=== PATIENT | male | born 1945 | race Caucasian/White ===

== ENCOUNTER 2020-11-14 15:00 | Emergency (ER) | payer MEDICARE ==
[2020-11-14 15:40] VITALS: BP 122/68; PULSE 59; RESP 18; TEMP 97.8
[2020-11-14] MEDS ORDERED: OXYMETAZOLINE 0.05% NASL SPRAY 1 SPRAY BOTTLE NASAL STA (16:04)
--- NOTE | 2020-11-14 19:08 | ED ---
ENT HPI - General Chief complaint: ENT Stated complaint: Nose Bleed Time Seen by Provider: 11/14/20 19:03 Source: patient, family Mode of arrival: wheelchair Limitations: no limitations - History of Present Illness Initial comments: 75-year-old male presents to the emergency department with a chief complaint of nosebleed. Patient states this occurred about 1:30pm in the afternoon without any any trauma. Patient reports the bleeding is, from the left nostril. No history of epistaxis. States he only takes aspirin but no other anticoagulants. He reports feeling slightly lightheaded earlier today after the bleeding started but denies any dizziness. Denies any chest pain or shortness of breath. - Related Data Previous Rx's Medication Instructions Recorded Amoxicillin/Potassium Clav 1 tab PO Q12HR #20 tab 11/14/20 [Augmentin 875-125 Tablet] Allergies Allergy/AdvReac Type Severity Reaction Status Date / Time No Known Allergies Allergy Verified 11/14/20 15:37 Review of Systems ROS Statement: Those systems with pertinent positive or pertinent negative responses have been documented in the HPI. ROS Other: All systems not noted in ROS Statement are negative. Past Medical History Past Medical History: Myocardial Infarction ([place]) History of Any Multi-Drug Resistant Organisms: None Reported, Unobtainable Past Surgical History: Heart Catheterization With Stent Past Psychological History: No Psychological Hx Reported Past Alcohol Use History: None Reported Past Drug Use History: None Reported General Exam Limitations: no limitations General appearance: alert, in no apparent distress Head exam: Present: atraumatic, normocephalic, normal inspection Eye exam: Present: normal appearance, PERRL, EOMI Pupils: Present: normal accommodation ENT exam: Present: normal exam, mucous membranes moist, TM's normal bilaterally, normal external ear exam. Absent: normal oropharynx (Left-sided epistaxis. Unable to visualize the source of the bleed. Residual blood noted in the posterior pharynx. Patient is spitting out blood clots.) Neck exam: Present: normal inspection, full ROM. Absent: tenderness Respiratory exam: Present: normal lung sounds bilaterally. Absent: respiratory distress Cardiovascular Exam: Present: regular rate, normal rhythm, normal heart sounds Extremities exam: Present: normal inspection, full ROM. Absent: tenderness Back exam: Present: normal inspection, full ROM. Absent: tenderness, CVA tenderness (R), CVA tenderness (L) Neurological exam: Present: alert, oriented X3, normal gait Psychiatric exam: Present: normal affect, normal mood Skin exam: Present: warm, dry, intact, normal color Course Vital Signs 11/14/20 15:37 Temperature 97.8 F Pulse Rate 59 L Respiratory 18 Rate Blood Pressure 122/68 O2 Sat by Pulse 97 Oximetry Medical Decision Making - Medical Decision Making 75-year-old male presents to the emergency department with a chief complaint of a nosebleed. On physical examination, unable to visualize the source of the bleed. Patient had a clamp for over an hour with no improvement in symptoms. I applied a Rhino Rocket which immediately stopped the bleeding. Patient will be started on Augmentin. Will be discharged with outpatient follow-up to ENT. and patient agreeable. Return parameters discussed. Case discussed with Dr. Aly. Disposition Clinical Impression: Epistaxis not due to trauma Disposition: HOME SELF-CARE Condition: Stable Instructions (If sedation given, give patient instructions): Nosebleed (ED) Additional Instructions: Follow-up with an ENT specialist. Return to emergency department if symptoms worsen. A strep medication as directed. Prescriptions: Amoxicillin/Potassium Clav [Augmentin 875-125 Tablet] 1 tab PO Q12HR #20 tab Is patient prescribed a controlled substance at d/c from ED?: No Referrals: None,Stated [Primary Care Provider] - 1-2 days Misbah Joyce DO [Doctor of Osteopathic Medicine] - 1-2 days Time of Disposition: 19:07
== END 2020-11-14 19:24 | disposition home or self-care (01) ==
LOC: EC 15:00
DX: R04.0 Epistaxis (principal); R42 Dizziness and giddiness; I25.2 Old myocardial infarction; Z79.82 Long term (current) use of aspirin
CPT/HCPCS: 30901; 99283